=== PATIENT | female | born 1990 | race Asian ===

== ENCOUNTER 2019-01-14 11:15 | Inpatient (IN) | payer MEDICAID, SELFPAY ==
[2019-01-14 12:04] VITALS: BMI 35.9
[2019-01-14] MEDS: Lactated Ringers 1,000 ML 50 ML IV ×3 (13:25→21:11)
--- NOTE | 2019-01-14 13:36 | PCM.HP.OB ---
- Problem List (1) Premature rupture of membranes Status: Acute (2) Anemia affecting Status: Acute History Date of Admission: 01/14/19 Final MARLEN: 01/21/19 Final MARLEN Source: US <20 weeks Gestational age: 39 Weeks and 0 Days History of this : This is a 28 year-old, G [1], P [0], at 39 weeks gestational age. Presented to labor and delivery with PROM. Not feeling any contractions. Allergies No Known Allergies Allergy (Verified 01/14/19 11:58) Home Medications: Home Medications Iron 65 mg PO DAILY 01/14/19 Vitamin Tablet 1 PO DAILY 01/14/19 Smoking Status: Never smoker Alcohol: None Substance Use Type: Marijuana Number of Fetus(es): 1 Heart Tracin, moderate variability, accels, no decels, Category 1 TOCO Analysis: Irregular uterine contractions, mild, patient not feeling them. History Past Pregnancies: Past Pregnancies Delivery Date Name GA/Weeks Outcome Route Weight Gender Labor Length Anesthesia Delivery Location Provider FOB Labs: GBS negative RPR negative Rubella immune HBsAG HIV B positive, antibody screen negative GC/CT negative Expected Delivery Method: Spontaneous Vaginal Review of Systems Constitutional: Denies: Chills, Fever, Weight Change HEENT: Denies: Head Aches, Sinus Congestion, Sinus Drainage Respiratory: Denies: Cough, Shortness of breath at rest, Sputum production Gastrointestinal: Denies: Abdominal Pain, Nausea, Vomiting Genitourinary: Denies: Dysuria Musculoskeletal: Denies: Joint Pain, Joint Tenderness Skin: Denies: Rash, Wounds Neurological: Denies: Numbness, Tingling, Focal weakness Psychiatric: Denies: Anxiety, Depression, Homicidal Ideations, Suicidal Ideations Hematologic/ Lymphatic: Denies: Easy Bruising, Easy Bleeding Physical Exam General: Alert, Oriented x3, No apparent distress HEENT: Atraumatic, Normocephalic. Negative for: Thyromegaly, Lymphadenopathy Cardiovascular: Regular rate, Regular Rhythm, No murmurs Lungs: Clear to auscultation, Normal air movement, No rhonchi, No wheeze Abdomen: Bowel Sounds Present, Soft, Non Tender, Gravid Neurological: Deep Tendon Reflexes 2+/4 and Symmetrical EMERGENCY SPECIALIST: Normal external genitalia Estimated gestational size: Appropriate for gestational size Presentation: Cephalic Cervix Dilation (cm): 3 - Per in office prior to admission. Station: 0 Effacement (%): 75 Assessment/Plan All Active Problems Premature rupture of membranes (Acute) Anemia affecting (Acute) This is a 28 year-old, G [1], P [0], at 39 weeks gestational age. A: Premature Rupture of Membranes Category 1 FHT P: 1) Admit to L&D 2) Pitocin augmentation. Reviewed risks, benefits, and alternatives. Patient agrees to plan. 3) Routine labs 4) Continuous monitoring 5) Epidural for pain management. 6) for collaborative physician.
[2019-01-14 13:41] LABS: Hematocrit 35.9 % (37-47); Hemoglobin 11.7 g/dl (12.0-15.0); Mean Corp Hgb Conc 32.6 g/gl (32-36); Mean Corpuscular Hgb 26.6 pg (27.0-32.0); Mean Corpuscular Volume 81.6 fL (81-99); Mean Platelet Vol. 9.4 fl (6.2-12.0); Platelet Count 217 K/mm3 (150-450); RBC Distribution Width SD 41.4 fl (35.1-43.9); White Blood Count 9.5 K/mm3 (4.4-11.0)
[2019-01-14 13:42] LABS: Scan Indicated on CBC? Y/N NO
[2019-01-14] MEDS: Oxytocin 30 units/NS 500 ml 30 UNITS/500 ML IV.SOLN IV (18:53)
[2019-01-14] MEDS: fentaNYL-bupivacaine (epidural) 100 ML BAG EPIDURAL (20:30)
[2019-01-15] MEDS: Lactated Ringers 1,000 ML 50 ML IV (00:27)
[2019-01-15] MEDS: fentaNYL-bupivacaine (epidural) 100 ML BAG EPIDURAL (01:02)
[2019-01-15] MEDS: Acetaminophen 325 MG Tablet PO (06:15)
--- NOTE | 2019-01-15 07:07 | PLAC_PTH ---
PATIENT: ONUR DANG LOC: [facility] U#:[id number] AGE/SX: 28/F ROOM: WP004 RE01/14/[address]: Dr. Lg Lawson MD : [id number] BED: 1 DIS: 01/17/2019 SPEC #: [id number] RECD: 01/15/19 15:33 STATUS: FER NOHEMY #: [id number] MARÍA ELENA: 01/15/19 07:[address]: Lg Lawson DEPT: SURGICAL PATHOLOGY RECD BY: Dominick Peace ENTERED: 01/17/19 14:39 SP TYPE: PLACENTA OTHR DR: No Primary Care Phys Tissues: Placenta, NOS Procedures: Surgery Specimen Level V HEADER OPERATION: Vaginal delivery PRE-OP DIAGNOSIS: Maternal fever, rupture of membranes TISSUE SUBMITTED: Placenta MICROSCOPIC DIAGNOSIS Placenta: Placental disc - third trimester placenta (394 gm). - Focal mild acute vasculitis of subamniotic blood vessels. - Focal area of intraparenchymal hemorrhage (1 cm in greatest dimension). - Subamniotic simple cyst. Membranes - acute chorioamnionitis. Umbilical cord - three blood vessels and focal mild acute funisitis. SJ:blake 01/18/19 MICROSCOPIC DESCRIPTION Slides are reviewed. GROSS DESCRIPTION SPECIMEN: PLACENTA / CLINICAL INFORMATION: A. Weight: 2.833 kg B. Gestational Age: 39 weeks C. Sex: Female PLACENTAL WEIGHT (POST FIXATION): 394 gm PLACENTAL DIMENSIONS: 15 x 15 x 3 cm PLACENTAL SHAPE: Usual ovoid PLACENTAL WEIGHT FOR GESTATIONAL AGE: Within 10-99th percentile MEMBRANES - Present A. Insertion: Marginal B. Site of rupture from edge: 5.5 cm from edge of placental disc C. Color of membrane: Smith-schwartz D. Abnormalities: None UMBILICAL CORD - Present A. Color: Smith-schwartz B. Insertion: Paracentral C. Length: 26 cm D. Diameter: 1-1.5 cm E. Number of vessels: Three F. Abnormalities: None PLACENTAL DISC - Present A. Color of surface: Smith-schwartz B. surface abnormalities: surface shows a cyst filled with mucoid material measuring 3 cm in greatest dimension. C. Maternal cotyledons: Intact with minimal tears D. Attached retro placental clot: No clot E. Cut surface: Dark red and spongy F. Lesions: Sections reveal a hemorrhagic area measuring 1 cm in greatest dimension. G. Separate clot: Absent SECTIONS SUBMITTED: 1. Membrane roll 2. Cord, maternal end, surface cyst 3. Cord, end, surface cyst 4. Placental disc, and maternal surfaces 5. Placental disc, and maternal surfaces, hemorrhagic lesion 6. Placental disc, and maternal surfaces DAVID:blake 01/17/19 TC:2 CPT: 52065
[2019-01-15] MEDS: Oxytocin 30 units/NS 500 ml 30 UNITS/500 ML IV.SOLN 334 UNITS IV (07:10)
[2019-01-15] MEDS: Oxytocin 30 units/NS 500 ml 30 UNITS/500 ML IV.SOLN 167 UNITS IV (07:40)
--- NOTE | 2019-01-15 08:25 | OP.PCM_ITS ---
Addendum entered and electronically signed by Ashley Rodriguez CNM 01/15/19 08:57: Code Visit cord clamped and cut by FOB after pulsations ceased. Original Note: - Problem List (1) Premature rupture of membranes Status: Acute (2) Anemia affecting Status: Acute (3) (normal spontaneous vaginal delivery) Status: Acute (4) Second degree perineal laceration during delivery Status: Acute Vaginal Delivery Maternal Presentation: Active Labor Method of Induction: Pitocin Amniotic Membrane Rupture Type: Spontaneous at home Amniotic Fluid Description: Clear Final MARLEN Source: US <20 weeks Date of Procedure: 01/15/19 Pre-Operative Diagnosis: Premature Rupture of Membranes Post-Operative Diagnosis: Surgery/ Procedure Performed: Spontaneous Vaginal Delivery Type of Anesthesia: Epidural, Local with 1% lidocaine Description of Procedure: Progressed to complete with urge to push. Maternal temperature elevated to 101.7 and tachycardia, suspected Triple I. During pushing heart rate 165- 170, moderate variability, late decelerations. notified of heart tracing and near delivery. Patient pushing efforts with progress. [employer] Developer called to delivery due to tachycardia and late decelerations. of viable female infant over 2nd degree perineal laceration. APGARS 9,9 with weight pending. Strong cry with delivery, stimulation and mouth and nares suctioned for secretions, terminal meconium. Infant placed on maternal abdomen and skin to skin. Pitocin started for active 3rd stage management. Placenta delivered with maternal effort, intact, 3 vessel cord. Placenta given to nursing for cultures. Perineum inspected and revealed 2nd degree perineal laceration. Repaired with 3.0 vicryl with epidural and 1% lidocaine. Fundus firm, hemostasis achieved, EBL 150ml. Baby to breast and mom planning on . Mom and baby stable. Family bonding well. notified of delivery. Presentation: Vertex Placental Delivery Description: Spontaneous Placenta Disposition: [facility] Cord Vessel Description: 3 Vessels Cord Entanglement: None Estimated Blood Loss: 150ml Infant A gender: Female (1 minute): 9 (5 minute): 9 Episiotomy Description: Perineal Extension/lac Laceration: Perineal Extension/lac, 2nd degree Medications given after delivery: IV Pitocin
[2019-01-15] MEDS: Ibuprofen 600 MG Tablet PO (09:30)
--- NOTE | 2019-01-15 10:20 | ED.RN ---
epidural catheter removed. blue tip intact. pt tolerated well
[2019-01-15 11:05] VITALS: BP 134/72; PULSE 116; RESP 18; TEMP 37.4; O2SAT 97
--- NOTE | 2019-01-15 12:10 | NURSING ---
tucks pads and ice pack applied for perineal comfort
[2019-01-15] MEDS: Ferrous Sulfate 325 MG Tablet PO (12:58)
[2019-01-15 15:38] VITALS: BP 124/68; PULSE 96; RESP 18; TEMP 36.4; O2SAT 98
[2019-01-15 16:22] LABS: Amphetamine Urine VISTA NEGATIVE (<1000 ng/mL); Barbiturate Urine VISTA NEGATIVE (< 200 ng/mL); Benzodiazepine Urine VISTA NEGATIVE (< 200 ng/mL); Cocaine Urine VISTA NEGATIVE (< 300 ng/mL); Ecstacy Urine VISTA NEGATIVE (< 500 ng/mL); Methadone Urine VISTA NEGATIVE (< 300 ng/mL); PCP Urine VISTA NEGATIVE (< 25 ng/mL); THC Urine VISTA NEGATIVE (< 50 ng/mL); Vista UDS pH Range 6
[2019-01-15 20:00] VITALS: BP 125/83; PULSE 108; RESP 16; TEMP 36.2
[2019-01-16] VITALS: BP 132/89; PULSE 102; RESP 18; TEMP 36.9
[2019-01-16] MEDS: Ibuprofen 600 MG Tablet PO ×3 (00:21→16:02)
[2019-01-16 04:15] VITALS: BP 118/65; PULSE 85; RESP 16; TEMP 36.2
[2019-01-16 09:14] VITALS: BP 125/72; PULSE 89; RESP 16; TEMP 36.4; O2SAT 98
--- NOTE | 2019-01-16 10:52 | PCM.PN.OB ---
Patient Problems: Active and Suspected Problems Premature rupture of membranes (Acute) Anemia affecting (Acute) (normal spontaneous vaginal delivery) (Acute) Second degree perineal laceration during delivery (Acute) Subjective: Doing well per patient and nursing staff. Ambulating and taking PO without difficulty. Voiding and passing flatus. Denies headache, visual changes, chest pain, shortness of breath, leg pain, increased vaginal bleeding or clots. Bottle feeding. Planning D/C home tomorrow. - Physical Exam General: Alert, Oriented x3, Cooperative HEENT: Atraumatic, Normocephalic Neck: Supple, Trachea Midline Lungs: Clear to auscultation, No rhonchi, No wheeze Cardiovascular: Regular rate, Regular Rhythm, No murmurs Abdomen: Bowel Sounds Present, Soft, Non Tender, Gravid, - - Fundus firm 3 below U Extremities: - - +1 BLE pitting edema Neurological: Cranial nerves II-XII grossly intact Psych/Mental Status: Normal Affect, Appropriate Vital Signs Temp Pulse Resp BP Pulse Ox 97.6 F L 89 16 125/72 H 98 01/16/19 09:14 01/16/19 09:14 01/16/19 09:14 01/16/19 09:14 01/16/19 09:14 Oxygen Delivery Method Room Air Weight: 189 lb 12.8 oz Body Mass Index (BMI) 35.9 Intake and Output for Last 24 Hours 01/14/19 01/15/19 01/16/19 23:59 23:59 23:59 Intake Total 3856 / 3856 Output Total 350 / 350 2500 / 2500 Balance -350 / -350 1356 / 1356 Laboratory Tests Past 24 Hrs 01/15/19 15:50 Urine Opiates Screen NEGATIVE Urine Methadone Screen NEGATIVE Ur Barbiturates Screen NEGATIVE Ur Phencyclidine Scrn NEGATIVE Ur Amphetamines Screen NEGATIVE U Methamphetamin-MDMA NEGATIVE U Benzodiazepines Scrn NEGATIVE Urine Cocaine Screen NEGATIVE U Cannabinoids Screen NEGATIVE Ur Drug Screen Comment Medical Necessity - Tobacco Use Smoking Status: Never smoker Assessment/Plan All Active Problems Premature rupture of membranes (Acute) Anemia affecting (Acute) (normal spontaneous vaginal delivery) (Acute) Second degree perineal laceration during delivery (Acute) A: PPD #1 P: 1) Routine care 2) Planning D/C home tomorrow 3) Pain management, controlled at this time.
--- NOTE | 2019-01-16 11:26 | DCINST_ITS ---
Discharge Diet: No Restrictions Discharge Activity: May Drive, May Shower, May Take a Tub Bath May resume sexual activity in: 4-6 weeks Weight Bearing Status: Full weight bearing Call your doctor if your incision/area has: Continuous Slow Oozing, Sudden Increased Bleeding, Increased Pain/ Swelling, Increased Redness, Foul Smelling Discharge Call your doctor if you observe: Fever of 101 or Higher, Inability to urinate, Inability to have a bowel movement, Using more than one pad per hour, Shortness of breath, Chest pain, Increased palpitations (irregular heartbeat), Calf discomfort, Uncontrolled pain Additional Instructions: If you experience any of the following, contact your healthcare provider. * Bleeding that soaks a pad every hour for 2 hours * Fever 100.4 or higher * Unrelieved incision or abdominal pain * Swelling, redness, discharge or bleeding from your incision or episiotomy site * Your incision begins to separate * Problems urinating (including inability to urinate or burning while urinating). * Visual changes * Severe headache * Flu-like symptoms * Pain or redness in one of both of your breasts * Pain, warmth, tenderness or swelling in your legs, especially the calf area * Frequent nausea and vomiting * Symptoms of depression or anxiety If you experience any of the following, call 911 or go to the nearest Emergency Room. * Chest pain * Problems breathing * Seizure activity * Partial or complete paralysis of a body part, slurred speech, weakness or drooping of the face, or a sudden inability to walk or hold your balance Allergies/Adverse Reactions: Allergies No Known Allergies Allergy (Verified 01/14/19 11:58) Medications to take at Discharge Iron 65 mg PO DAILY 01/14/19 Vitamin Tablet 1 PO DAILY 01/14/19 Ibuprofen [Motrin] 600 mg PO Q6H PRN PRN 30 Days #30 tablet 01/16/19 The following prescriptions were given: Ibuprofen [Motrin] 600 mg PO Q6H PRN PRN 30 Days #30 tablet PRN Reason: Mild Pain (-01/30) Please Follow Up With: Ashley Rodriguez CNM When: Call to make an appointment with your doctor in 2 weeks and 6 weeks. Primary Care Physician: Care Physician,No Primary [Primary Care Provider] - Test Results: Test results from this visit will be discussed in further detail at your follow- up appointment, if applicable.
[2019-01-16] MEDS: Ferrous Sulfate 325 MG Tablet PO (12:58)
[2019-01-16 14:40] VITALS: BP 118/78; PULSE 91; RESP 16; TEMP 36.5; O2SAT 97
[2019-01-16 20:00] VITALS: BP 108/68; PULSE 88; RESP 18; TEMP 36.3
[2019-01-17 01:00] VITALS: BP 118/83; PULSE 90; RESP 16; TEMP 36.8
[2019-01-17] MEDS: Ibuprofen 600 MG Tablet PO ×2 (01:09→06:52)
[2019-01-17] MEDS: Acetaminophen 500 MG Tablet 1000 MG PO (02:50)
[2019-01-17] MEDS: Ferrous Sulfate 325 MG Tablet PO (07:56)
[2019-01-17 08:15] VITALS: BP 131/80; PULSE 92; RESP 18; TEMP 36.2; O2SAT 95
--- NOTE | 2019-01-17 08:20 | PCM.PN.OB ---
Patient Problems: Active and Suspected Problems Premature rupture of membranes (Acute) Anemia affecting (Acute) (normal spontaneous vaginal delivery) (Acute) Second degree perineal laceration during delivery (Acute) Subjective: pt seen at bedside, doing well. pt reports good pain control. lochia mild. Bottle feeding. - Physical Exam General: Alert, Oriented x3 Abdomen: Soft - fundus firm Vital Signs Temp Pulse Resp BP Pulse Ox 98.3 F 90 16 118/83 H 97 01/17/19 01:00 01/17/19 01:00 01/17/19 01:00 01/17/19 01:00 01/16/19 14:40 Oxygen Delivery Method Room Air Weight: 86.092 kg Body Mass Index (BMI) 35.9 Intake and Output for Last 24 Hours 01/15/19 01/16/19 01/17/19 23:59 23:59 23:59 Intake Total 3856 / 3856 Output Total 2500 / 2500 Balance 1356 / 1356 Medical Necessity - Tobacco Use Smoking Status: Never smoker Assessment/Plan All Active Problems Premature rupture of membranes (Acute) Anemia affecting (Acute) (normal spontaneous vaginal delivery) (Acute) Second degree perineal laceration during delivery (Acute) PPD#2, doing well routine care pain mgmt dc home
[2019-01-18 15:43] LABS: Pathology Specimen OB SEE PATHOLOGY REPORT
== END 2019-01-17 10:45 | disposition home or self-care (01) | DRG 560 ==
PROVIDERS: Advanced Practice Midwife; Obstetrics & Gynecology; Admitting Provider Obstetrics & Gynecology; Referring Provider Obstetrics & Gynecology; Visit Provider Obstetrics & Gynecology
DX: O42.92 Full-term premature rupture of membranes, unspecified as to length of time between rupture and onset of labor (principal); O99.02 Anemia complicating childbirth; D64.9 Anemia, unspecified; O70.1 Second degree perineal laceration during delivery; O75.2 Pyrexia during labor, not elsewhere classified; O76 Abnormality in fetal heart rate and rhythm complicating labor and delivery; O77.0 Labor and delivery complicated by meconium in amniotic fluid; Z3A.39 39 weeks gestation of pregnancy; Z37.0 Single live birth
CPT/HCPCS: 59025; 59050; 80307; 85027; 86850; 86900; 88307; 99218; J7120; G0378

== ENCOUNTER 2021-07-03 15:15 | Inpatient (IN) | payer MEDICAID, SELFPAY ==
[2021-07-03] VITALS (86 sets, daily range): BP systolic 111–174; BP diastolic 63–107; PULSE 78–107; RESP 16–18; TEMP 36.1–36.7; O2SAT 82–99; BMI 37.9
[2021-07-03] MEDS: 0.9% Saline Lock 10 ML Syringe IV ×2 (13:08→15:45)
[2021-07-03 13:34] LABS: Hematocrit 34.9 % (37-47); Hemoglobin 11.1 g/dL (12.0-15.0); Mean Corp Hgb Conc 31.8 g/dL (32-36); Mean Corpuscular Hgb 25.9 pg (27.0-32.0); Mean Corpuscular Volume 81.4 fL (81-99); Mean Platelet Vol. 10.4 fl (6.2-12.0); Platelet Count 222 K/mm3 (150-450); RBC Distribution Width SD 40.2 fl (35.1-43.9); Red Blood Count 4.29 M/mm3 (4.2-5.4); White Blood Count 8.5 K/mm3 (4.4-11.0)
[2021-07-03 13:56] LABS: Protein:Creat Ratio 230 mg/g CRE (0-200)
[2021-07-03 14:15] LABS: AST(SGOT) 13 U/L (15-37); Alanine Aminotransfer ALT/SGPT 14 U/L (13-56); Creatinine, Serum 0.54 mg/dL (0.55-1.02); EST Glomerular Filtration Rate 141 mL/min (>60); Est Glom Filt Rate - Afr Amer 171 mL/min (>60); LDH 257 U/L (84-246); Uric Acid 6.2 mg/dL (2.6-6.0)
[2021-07-03] MEDS: Lactated Ringers 1,000 ML 50 ML IV (15:45)
[2021-07-03] MEDS: miSOPROStol 25 MCG TABLET PO ×2 (16:16→20:53)
[2021-07-03] MEDS: Labetalol (Prefilled) 20 MG/4 ML IV (16:56)
[2021-07-03] MEDS: Magnesium Sulfate 4gm/100mL 4 GM/100 ML IV.SOLN. IV (16:59)
[2021-07-03] MEDS: Magnesium Sulfate 4gm/100mL 2 GM/50 ML IV.SOLN. IV (17:18)
--- NOTE | 2021-07-03 17:22 | NURSING ---
Second bag for bolus hung
[2021-07-03] MEDS: Magnesium Sulfate 20 GM/500 ML BAG IV (17:30)
[2021-07-03] MEDS: Labetalol 100 MG Tablet PO ×2 (17:51→22:00)
[2021-07-03] MEDS: 0.9% Normal Saline Single 100 ML IV.SOLN. INTRA-UTER (20:05)
--- NOTE | 2021-07-03 20:12 | PCM.HP.OB ---
HPI - General General Date of Admission: 07/03/21 HPI Narrative ONUR DANG, is a 31 F who presents at 37w5d. Presented to the office today for routine visit and found to have elevated blood pressure. Sent to labor and delivery for serial blood pressure and labs and blood pressure continued to increase. Decision for induction of labor due to gestational hypertension with severe range blood pressure. Asymptomatic with no headaches, visual changes, right upper quadrant pain. complicated by obesity, prior marijuana use that stopped with . Maternal Data Information MARLEN Calculator Estimated Delivery Date Method Current WG Current Estimate 07/19/21 Manual 37w 5d PFSH [facility] Medical History (Updated 07/03/21 @ 20:19 by Ashley Rodriguez CNM) Family history of hearing loss at age younger than 7 years Gestational HTN Home Medications Iron 65 mg PO DAILY 01/14/19 [History Last Taken 07/01/21 09:00 65 mg] PNV no.[id number] [ Gummies] 4 tab PO DAILY 07/03/21 [History Last Taken 07/02/21 09:00 4 tab] Allergy/AdvReac Type Severity Reaction Status Date / Time No Known Allergies Allergy Verified 07/03/21 12:48 Social History Smoking Status: Former smoker History Elective abortions Hx Para 1 Spontaneous abortions Hx # Term Pregnancies Ectopic pregnancies Hx # Pregnancies Multiple births # of living children NST FHR Rate Baby A Baseline: 125 Variability:: Moderate Accelerations:: 15 x 15 Decelerations:: None FHR Category:: Category I Uterine Activity:: None ROS Constitutional Constitutional: Reports systems reviewed and no addt'l complaints, except as documented; Denies headache(s) Eyes Eyes: Denies acute decrease in peripheral vision, blurry vision or change in vision ENT HEENT: Reports systems reviewed and no addt'l complaints, except as documented Cardiovascular Cardiovascular: Denies chest pain or dizziness Respiratory/Chest Respiratory/Chest: Denies cough, dyspnea, dyspnea on exertion, shortness of breath at rest or shortness of breath with exertion Gastrointestinal Gastrointestinal: Denies abdominal pain, diarrhea, nausea or vomiting Genitourinary Genitourinary: Denies abdominal discomfort or movement Musculoskeletal Musculoskeletal: Denies limited range of motion Integumentary Integumentary: Reports systems reviewed and no addt'l complaints, except as documented Neurologic Neurologic: Reports systems reviewed and no addt'l complaints, except as documented Psychiatric Psychiatric: Reports systems reviewed and no addt'l complaints, except as documented Endocrine Endocrinology: Reports systems reviewed and no addt'l complaints, except as documented Hematologic/Lymphatic Hematologic/Lymphatic: Reports systems reviewed and no addt'l complaints, except as documented Allergic/Immunologic Allergic/Immunologic: Reports systems reviewed and no addt'l complaints, except as documented Vital Signs Vital Signs Vital Signs: 07/03/21 12:43 07/03/21 13:02 07/03/21 13:14 Temperature 97.3 F L Temperature Source Temporal Pulse Rate 81 83 84 Respiratory Rate Respiratory Effort Respiratory Depth Respiratory Pattern Blood Pressure 142/99 H 166/101 H 155/104 H Blood Pressure Mean BP Systolic 142 166 155 BP Diastolic 99 101 104 Blood Pressure Source Blood Pressure Position Blood Pressure Location Pulse Ox Oxygen Delivery Method 07/03/21 13:29 07/03/21 13:44 07/03/21 13:59 Temperature Temperature Source Pulse Rate 83 85 88 Respiratory Rate Respiratory Effort Respiratory Depth Respiratory Pattern Blood Pressure 152/96 H 153/99 H 141/99 H Blood Pressure Mean BP Systolic 152 153 141 BP Diastolic 96 99 99 Blood Pressure Source Blood Pressure Position Blood Pressure Location Pulse Ox Oxygen Delivery Method 07/03/21 14:14 07/03/21 14:29 07/03/21 14:44 Temperature Temperature Source Pulse Rate 89 78 80 Respiratory Rate Respiratory Effort Respiratory Depth Respiratory Pattern Blood Pressure 142/98 H 145/95 H 157/95 H Blood Pressure Mean BP Systolic 142 145 157 BP Diastolic 98 95 95 Blood Pressure Source Blood Pressure Position Blood Pressure Location Pulse Ox Oxygen Delivery Method 07/03/21 15:00 07/03/21 15:57 07/03/21 16:14 Temperature 98.1 F Temperature Source Temporal Pulse Rate 87 88 83 Respiratory Rate Respiratory Effort Respiratory Depth Respiratory Pattern Blood Pressure 142/98 H 165/107 H 174/96 H Blood Pressure Mean BP Systolic 142 165 174 BP Diastolic 98 107 96 Blood Pressure Source Blood Pressure Position Blood Pressure Location Pulse Ox Oxygen Delivery Method 07/03/21 16:15 07/03/21 16:34 07/03/21 16:47 Temperature Temperature Source Pulse Rate 88 88 86 Respiratory Rate Respiratory Effort Respiratory Depth Respiratory Pattern Blood Pressure 154/98 H 160/98 H 161/103 H Blood Pressure Mean BP Systolic 154 160 161 BP Diastolic 98 98 103 Blood Pressure Source Blood Pressure Position Blood Pressure Location Pulse Ox Oxygen Delivery Method 07/03/21 16:59 07/03/21 17:02 07/03/21 17:05 Temperature 98.1 F Temperature Source Temporal Pulse Rate 93 93 96 Respiratory Rate 16 18 Respiratory Effort Normal Respiratory Depth Normal Respiratory Pattern Normal Blood Pressure Blood Pressure Mean BP Systolic BP Diastolic Blood Pressure Source Blood Pressure Position Blood Pressure Location Pulse Ox 97 97 96 Oxygen Delivery Method Room Air Room Air 07/03/21 17:07 07/03/21 17:09 07/03/21 17:12 Temperature Temperature Source Pulse Rate 101 H 100 99 Respiratory Rate Respiratory Effort Respiratory Depth Respiratory Pattern Blood Pressure 136/81 H Blood Pressure Mean BP Systolic 136 BP Diastolic 81 Blood Pressure Source Blood Pressure Position Blood Pressure Location Pulse Ox 97 97 Oxygen Delivery Method 07/03/21 17:17 07/03/21 17:19 07/03/21 17:20 Temperature Temperature Source Pulse Rate 91 88 95 Respiratory Rate 16 Respiratory Effort Respiratory Depth Respiratory Pattern Blood Pressure 133/81 H 133/81 H Blood Pressure Mean 98 BP Systolic 133 BP Diastolic 81 Blood Pressure Source Monitor Blood Pressure Position Semi-Fowlers Blood Pressure Location Left Arm Pulse Ox 95 96 Oxygen Delivery Method Room Air 07/03/21 17:22 07/03/21 17:27 07/03/21 17:30 Temperature Temperature Source Pulse Rate 101 H 90 100 Respiratory Rate Respiratory Effort Respiratory Depth Respiratory Pattern Blood Pressure 135/83 H Blood Pressure Mean BP Systolic 135 BP Diastolic 83 Blood Pressure Source Blood Pressure Position Blood Pressure Location Pulse Ox 97 95 Oxygen Delivery Method 07/03/21 17:32 07/03/21 17:36 07/03/21 17:37 Temperature Temperature Source Pulse Rate 107 H 98 96 Respiratory Rate 16 Respiratory Effort Respiratory Depth Respiratory Pattern Blood Pressure 135/83 H Blood Pressure Mean 100 BP Systolic BP Diastolic Blood Pressure Source Monitor Blood Pressure Position Semi-Fowlers Blood Pressure Location Left Arm Pulse Ox 96 96 95 Oxygen Delivery Method Room Air 07/03/21 17:40 07/03/21 17:42 07/03/21 17:47 Temperature Temperature Source Pulse Rate 93 88 91 Respiratory Rate Respiratory Effort Respiratory Depth Respiratory Pattern Blood Pressure 129/74 H Blood Pressure Mean BP Systolic 129 BP Diastolic 74 Blood Pressure Source Blood Pressure Position Blood Pressure Location Pulse Ox 96 98 Oxygen Delivery Method 07/03/21 17:49 07/03/21 17:50 07/03/21 17:51 Temperature Temperature Source Pulse Rate 92 91 95 Respiratory Rate 16 Respiratory Effort Normal Non-Labored Respiratory Depth Normal Respiratory Pattern Normal Blood Pressure 128/74 H 128/74 H Blood Pressure Mean 92 BP Systolic 128 BP Diastolic 74 Blood Pressure Source Monitor Blood Pressure Position Semi-Fowlers Blood Pressure Location Left Arm Pulse Ox 97 94 Oxygen Delivery Method Room Air 07/03/21 17:52 07/03/21 17:58 07/03/21 17:59 Temperature Temperature Source Pulse Rate 91 88 Respiratory Rate Respiratory Effort Respiratory Depth Respiratory Pattern Blood Pressure Blood Pressure Mean BP Systolic BP Diastolic Blood Pressure Source Blood Pressure Position Blood Pressure Location Pulse Ox 97 82 98 Oxygen Delivery Method 07/03/21 18:01 07/03/21 18:04 07/03/21 18:09 Temperature Temperature Source Pulse Rate 94 103 H 94 Respiratory Rate Respiratory Effort Respiratory Depth Respiratory Pattern Blood Pressure 128/81 H Blood Pressure Mean BP Systolic 128 BP Diastolic 81 Blood Pressure Source Blood Pressure Position Blood Pressure Location Pulse Ox 97 97 Oxygen Delivery Method 07/03/21 18:14 07/03/21 18:18 07/03/21 18:19 Temperature Temperature Source Pulse Rate 91 89 94 Respiratory Rate Respiratory Effort Respiratory Depth Respiratory Pattern Blood Pressure 126/82 H Blood Pressure Mean BP Systolic 126 BP Diastolic 82 Blood Pressure Source Blood Pressure Position Blood Pressure Location Pulse Ox 99 99 Oxygen Delivery Method 07/03/21 18:20 07/03/21 18:24 07/03/21 18:29 Temperature Temperature Source Pulse Rate 89 100 95 Respiratory Rate 16 Respiratory Effort Respiratory Depth Respiratory Pattern Blood Pressure 126/82 H Blood Pressure Mean 96 BP Systolic BP Diastolic Blood Pressure Source Monitor Blood Pressure Position Semi-Fowlers Blood Pressure Location Left Arm Pulse Ox 98 98 97 Oxygen Delivery Method Room Air 07/03/21 18:31 07/03/21 18:34 07/03/21 18:39 Temperature Temperature Source Pulse Rate 90 91 94 Respiratory Rate Respiratory Effort Respiratory Depth Respiratory Pattern Blood Pressure 128/80 H Blood Pressure Mean BP Systolic 128 BP Diastolic 80 Blood Pressure Source Blood Pressure Position Blood Pressure Location Pulse Ox 97 98 Oxygen Delivery Method 07/03/21 18:44 07/03/21 18:47 07/03/21 18:49 Temperature Temperature Source Pulse Rate 89 88 88 Respiratory Rate 16 Respiratory Effort Respiratory Depth Respiratory Pattern Blood Pressure 127/78 H 127/78 H Blood Pressure Mean 94 BP Systolic 127 BP Diastolic 78 Blood Pressure Source Monitor Blood Pressure Position Semi-Fowlers Blood Pressure Location Left Arm Pulse Ox 97 97 Oxygen Delivery Method Room Air 07/03/21 18:54 07/03/21 18:59 07/03/21 19:02 Temperature Temperature Source Pulse Rate 97 95 91 Respiratory Rate Respiratory Effort Respiratory Depth Respiratory Pattern Blood Pressure 126/71 H Blood Pressure Mean BP Systolic 126 BP Diastolic 71 Blood Pressure Source Blood Pressure Position Blood Pressure Location Pulse Ox 98 97 Oxygen Delivery Method 07/03/21 19:04 07/03/21 19:09 07/03/21 19:29 Temperature 97.0 F L Temperature Source Temporal Pulse Rate 97 95 93 Respiratory Rate Respiratory Effort Respiratory Depth Respiratory Pattern Blood Pressure 116/79 Blood Pressure Mean BP Systolic 116 BP Diastolic 79 Blood Pressure Source Blood Pressure Position Blood Pressure Location Pulse Ox 97 97 95 Oxygen Delivery Method 07/03/21 20:08 07/03/21 20:09 Temperature Temperature Source Pulse Rate 88 Respiratory Rate Respiratory Effort Respiratory Depth Respiratory Pattern Blood Pressure 117/73 Blood Pressure Mean BP Systolic 117 BP Diastolic 73 Blood Pressure Source Blood Pressure Position Blood Pressure Location Pulse Ox 96 Oxygen Delivery Method Weight Weight: 200 lb 13.458 oz Body Mass Index (BMI) 37.9 Physical Exam Const Constitutional Narrative: 2cm/60%/-2, vertex. Ford catheter inserted transcervically and 30ml NS instilled without difficulty. Patient tolerated well. Labs Labs Labs: Blood Type B POSITIVE Antibody Screen NEGATIVE Hct 34.9 % (37-47) L Hgb 11.1 g/dL (12.0-15.0) L Rhogam given: No GBS negative HIV negative RPR negative HBsAG negative HepC negative 1hr GCT normal Rubella Immune B Positive GC/CT negative Urine tox screen negative Assessment & Plan (1) Gestational HTN: (2) Encounter for induction of labor: (3) Obesity: PLAN: 1) Admit to labor and delivery for induction of labor due to gestational HTN 2) Routine labs, IV 3) Hypertensive protocol due to severe range blood pressure 4) Magnesium sulfate 6gram loading dose and 2 gram maintenance for severe range blood pressure 5) 150ml fluid restriction 6) Ford with PO cytotec 25mcg orally every 4 hrs 7) Pitocin per protocol after ford out 8) Planning epidural for pain management 9) Referral to for management of patient due to severe range blood pressure and updated on patient status.
[2021-07-03] MEDS: Acetaminophen 500 MG Tablet PO (22:22)
[2021-07-03] MEDS: Lactated Ringers 500 ML 999 ML IV (22:23)
[2021-07-04] VITALS (66 sets, daily range): BP systolic 89–142; BP diastolic 44–80; PULSE 80–160; RESP 14–18; TEMP 35.7–37.2; O2SAT 95–100
[2021-07-04] MEDS: Oxytocin 30 units/NS 500 ml 30 UNITS/500 ML IV.SOLN IV (01:19)
[2021-07-04] MEDS: fentaNYL-bupivacaine (epidural) 100 ML BAG EPIDURAL ×3 (01:35→10:45)
[2021-07-04] MEDS: Magnesium Sulfate 20 GM/500 ML BAG IV ×3 (03:09→22:59)
[2021-07-04] MEDS: Ondansetron 4 MG/2 ML Vial IV (08:04)
[2021-07-04] MEDS: Labetalol 100 MG Tablet PO ×2 (10:53→22:00)
[2021-07-04] MEDS: Oxytocin 30 units/NS 500 ml 30 UNITS/500 ML IV.SOLN 334 UNITS IV (12:11)
--- NOTE | 2021-07-04 12:31 | OP.PCM_ITS ---
Assessment & Plan (1) Vaginal delivery: Maternal Data Information MARLEN Calculator Estimated Delivery Date Method Current WG Current Estimate 07/19/21 Manual 37w 6d Gestational age: 37.6 Vaginal Delivery Maternal Presentation Maternal Presentation: Medically Indicated Induction Type of Induction: Pitocin, Gaspar Bulb and Cytotec Operative Information Date of Procedure: 07/04/21 Pre-Operative Diagnosis: gestational HTN, early term gestation Post-Operative Diagnosis: same, live female infant Surgery / Procedure Performed: Spontaneous Vaginal Delivery Type of Anesthesia: Epidural Special Medications: none Drain: Gaspar to straight drain Estimated Blood Loss: 100 Time of Delivery: 12:08 Findings Description of Procedure: I was called stat from the OR for patient delivery. When I entered the room the head was Dr. Acuna from [facility] Was initially in the room I at this time gowned and gloved and took over. At this time with 1 push 's head was delivered without complication fo llowed by the rest 's body. At this time the infant was placed on the maternal chest for immediate skin to skin the infant was vigorous at time of delivery. Delayed cord clamping was performed. At this time the placenta was then delivered spontaneously without complication. Vagina was inspected and noted to be intact. Presentation: Vertex Amniotic Membrane Rupture Type: Spontaneous Amniotic Fluid Description: Clear Placental Delivery Description: Spontaneous Placenta Disposition: [facility] Specimen(s) Removed: placenta Cord Vessel Description: 3 Vessels Cord Entanglement: None A Gender: Female (1 minute): 8 (5 minute): 9 Delayed Cord Clamping: Yes Post Vaginal Delivery Medications Given After Delivery: IV Pitocin Episiotomy Description: None Laceration: None Complication Complications: None Admit VTE Documentation VTE Present on Admission: No VTE Pharm Prophylaxis Ordered: No
--- NOTE | 2021-07-04 19:30 | NURSING ---
report receieved from shayy taylor RN. this rn to assume care of pt at this time.
[2021-07-04] MEDS: Ibuprofen 600 MG Tablet PO (21:59)
[2021-07-05] VITALS (30 sets, daily range): BP systolic 99–137; BP diastolic 50–77; PULSE 80–180; RESP 14–18; TEMP 36.1–36.8; O2SAT 82–100
[2021-07-05] MEDS: oxyCODONE 5 MG Tablet PO ×3 (02:23→13:46)
--- NOTE | 2021-07-05 08:13 | PCM.PN.OB ---
Subjective Subjective Patient currently on magnesium. She feels okay. She denies headache, vision changes, upper abdominal pain. No nausea or vomiting. Denies chest pain, shortness of breath, leg pain. Lochia normal. Has some cramping and vaginal soreness. Objective Data Objective Data Vital Signs: Vital Signs Temp Pulse Resp BP Pulse Ox 97.3 F L 180 H 16 114/69 82 07/05/21 07:28 07/05/21 07:29 07/05/21 07:28 07/05/21 07:28 07/05/21 07:29 Oxygen Delivery Method Room Air Weight: 200 lb 13.458 oz Body Mass Index (BMI) 37.9 Intake & Output: Intake and Output for Last 24 Hours 07/03/21 07/04/21 07/05/21 23:59 23:59 23:59 Intake Total 1539.92 / 1691.42 4475.35 / 4475.35 814.51 / 814.51 Output Total 350 / 350 5875 / 5875 1530 / 1530 Balance 1189.92 / 1341.42 -1399.65 / -1399.65 -715.49 / -715.49 Lab / Micro Data Result Diagrams: 07/03/21 13:08 07/03/21 13:08 Micro: Microbiology 07/03/21 15:40 Mucosa - Nose SARS-CoV-2 Antigen (Rapid) - Final Physical Exam Const alert and no apparent distress General Appearance: comfortable Resp normal respiratory effort GI soft to palpation and non-tender Extremity Extremity Narrative: 1+ pitting edema of LE bilaterally Assessment & Plan (1) Vaginal delivery: PLAN: Cont mag gtt for 24 hrs . BP WNL. No pre e symptoms currently. Will d/c ford once off mag gtt. Ok for regular diet. Discussed with pt will need to monitor BP's for at least 24 hours off mag gtt, and will assess for discharge at that time pending symptoms and BP's. (2) Obesity: (3) Gestational HTN: (4) Preeclampsia:
[2021-07-05] MEDS: Magnesium Sulfate 20 GM/500 ML BAG IV (08:29)
[2021-07-05] MEDS: Labetalol 100 MG Tablet PO ×2 (10:29→22:51)
[2021-07-05] MEDS: Ferrous Sulfate 325 MG Tablet PO (11:29)
[2021-07-05] MEDS: 0.9% Saline Lock 10 ML Syringe IV (12:44)
[2021-07-05] MEDS: Ibuprofen 600 MG Tablet PO (20:45)
[2021-07-06] VITALS (16 sets, daily range): BP systolic 113–137; BP diastolic 57–77; PULSE 74–97; RESP 16–18; TEMP 36.2–37.1; O2SAT 97–99
[2021-07-06] MEDS: Ibuprofen 600 MG Tablet PO ×2 (07:57→20:28)
--- NOTE | 2021-07-06 08:52 | PCM.PN.OB ---
Subjective Subjective Pt doing well. No MORAN, vision changes, upper abd pain. Pain well controlled. Anselmo reg diet without N/V. Ambulating and voiding without difficulty. Lochia normal. Desires discharge today. Objective Data Objective Data Vital Signs: Vital Signs Temp Pulse Resp BP Pulse Ox 97.1 F L 78 16 120/67 97 07/06/21 08:00 07/06/21 08:01 07/06/21 08:00 07/06/21 08:01 07/06/21 08:00 Oxygen Delivery Method Room Air Weight: 200 lb 13.458 oz Body Mass Index (BMI) 37.9 Intake & Output: Intake and Output for Last 24 Hours 07/04/21 07/05/21 07/06/21 23:59 23:59 23:59 Intake Total 4475.35 / 4475.35 1612.76 / 1612.76 Output Total 5875 / 5875 3030 / 3030 Balance -1399.65 / -1399.65 -1417.24 / -1417.24 Lab / Micro Data Result Diagrams: 07/03/21 13:08 07/03/21 13:08 Micro: Microbiology 07/03/21 15:40 Mucosa - Nose SARS-CoV-2 Antigen (Rapid) - Final Physical Exam Const alert and no apparent distress General Appearance: comfortable HEENT normocephalic Resp normal respiratory effort GI soft to palpation, non-tender and non-distended Extremity Extremity Narrative: 1+ edema bilaterally 2+ patellar reflexes Skin no rashes or lesions noted Assessment & Plan (1) Preeclampsia: PLAN: PPD# 2 s/p . S/p mag gtt for 24 hrs . BP's are WNL. No pre e symptoms. Doing well. Patient desires discharge today. Discussed BP's can trend up around 48 hours after delivery. Ok for discharge home if BP's remain WNL for a full 24 hours after mag gtt stopped. Discussed she will then need to oyster picker a BP cuff and check BP twice daily. Instructed her when to call with symptoms and BP's. To message office on Thursday with BP's. To have a visit next week for a BP check in office as well. (2) Vaginal delivery: (3) Obesity: (4) Gestational HTN:
[2021-07-06] MEDS: Senna/Docusate Sodium 1 Tablet PO (10:06)
[2021-07-06] MEDS: Labetalol 100 MG Tablet PO (10:06)
[2021-07-06] MEDS: Ferrous Sulfate 325 MG Tablet PO (11:58)
[2021-07-06] MEDS: 0.9% Saline Lock 10 ML Syringe IV (16:07)
[2021-07-06] MEDS: Hydrocortisone 2.5% Crm 1 APPLIC TOPICAL (16:17)
[2021-07-06] MEDS: Labetalol 200 MG Tablet PO (22:02)
[2021-07-07] VITALS (15 sets, daily range): BP systolic 127–168; BP diastolic 65–93; PULSE 83–92; RESP 16–18; TEMP 36.2–36.6; O2SAT 96–98
[2021-07-07] MEDS: 0.9% Saline Lock 10 ML Syringe IV (05:14)
[2021-07-07] MEDS: Labetalol 200 MG Tablet PO (08:28)
[2021-07-07] MEDS: Labetalol 100 MG Tablet PO (10:25)
--- NOTE | 2021-07-07 10:26 | PN.OBGYN_ITS ---
Subjective Subjective She is doing well this morning. She has no complaints and desires to go home. Denies headache, vision changes, upper abdominal pain. Ambulating voiding without difficulty. Tolerating regular diet without nausea or vomiting. Lochia normal. No chest pain, shortness of breath, leg pain. Pain is well controlled. Her and her significant other expressed frustration this morning as a state they need to go home today given lack of childcare for daughter at home. She is reasonably frustrated, and wishes to go home as soon as possible. Her and her significant other state that if not discharged today they will sign out AGAINST MEDICAL ADVICE. Objective Data Objective Data Vital Signs: Vital Signs Temp Pulse Resp BP Pulse Ox 97.1 F L 90 16 138/88 H 98 07/07/21 08:20 07/07/21 09:52 07/07/21 08:20 07/07/21 09:52 07/07/21 04:57 Oxygen Delivery Method Room Air Weight: 200 lb 13.458 oz Body Mass Index (BMI) 37.9 Intake & Output: Intake and Output for Last 24 Hours 07/05/21 07/06/21 07/07/21 23:59 23:59 23:59 Intake Total 1612.76 / 1612.76 Output Total 3030 / 3030 Balance -1417.24 / -1417.24 Lab / Micro Data Result Diagrams: 07/03/21 13:08 07/03/21 13:08 Micro: Microbiology 07/03/21 15:40 Mucosa - Nose SARS-CoV-2 Antigen (Rapid) - Final Physical Exam Const no apparent distress General Appearance: comfortable HEENT normocephalic Resp normal respiratory effort GI soft to palpation, non-tender and non-distended Extremity Extremity Narrative: 1+ pitting edema bilaterally Assessment & Plan (1) Preeclampsia: PLAN: Labetalol was increased yesterday to 200 mg BID. Increase again this AM to 300 mg BID. Patient feels well and has no symptoms of pre e. Will check labs this AM given BP's. S/p 24 hrs of mag gtt . Discussed with patient and significant other would like to monitor BP's all day today and reassess in PM. 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 They state they will sign out AMA today if not discharged. Will check BP q 1 hour this AM and reassess for discharge around noon. Discussed with patient she will need to check BP's at home later today if discharged. Reviewed to check BP prior to taking PM labetalol and 2 hours after. Also discussed symptoms of pre e and to check BP if she becomes symptomatic. Instructed her to call with BP of 160/110 or higher. Note sent to office staff to call patient tomorrow to schedule her for follow up in the office for a BP check. (2) Vaginal delivery: (3) Obesity: (4) Second degree perineal laceration during delivery:
[2021-07-07 10:37] LABS: Hematocrit 29.2 % (37-47); Hemoglobin 9.6 g/dL (12.0-15.0); Mean Corp Hgb Conc 32.9 g/dL (32-36); Mean Corpuscular Hgb 27.3 pg (27.0-32.0); Platelet Count 208 K/mm3 (150-450); RBC Distribution Width CV 14.7 % (11.6-14.6); RBC Distribution Width SD 42.9 fl (35.1-43.9); Red Blood Count 3.52 M/mm3 (4.2-5.4); White Blood Count 10.1 K/mm3 (4.4-11.0)
[2021-07-07 10:54] LABS: ALB/GLOB Ratio 0.8 RATIO (0.9-2.4); AST(SGOT) 54 U/L (15-37); Alanine Aminotransfer ALT/SGPT 40 U/L (13-56); Albumin, Serum 2.8 g/dL (3.2-5.0); Alkaline Phosphatase 112 U/L (45-117); Anion Gap 7 (5-15); BUN 9 mg/dL (7-18); BUN/Creat Ratio 16.1 RATIO (10-20); Chloride 107 mmol/L (98-107); Creatinine, Serum 0.56 mg/dL (0.55-1.02); EST Glomerular Filtration Rate 136 mL/min (>60); Est Glom Filt Rate - Afr Amer 165 mL/min (>60); Estimated Creatinine Clearance 111.85 ml/min; Globulin 3.5 g/dL (2.2-4.2); Glucose 99 mg/dL (74-106); Protein, Total 6.3 g/dL (6.4-8.2); Sodium Level 139 mmol/L (136-145)
--- NOTE | 2021-07-07 12:30 | NURSING ---
Patient requesting to leave AMA. Patient was educated that BP's are just under severe range even with BP meds and also she has an elevated liver enzyme. Informed of risks of leaving with risk of possible stroke or seizure. Educated on signs and symptoms to watch for and to bean picker prescription for BP cuff and Labetalol at pharmacy. Patient verbalized understanding and still requests to leave AMA.
== END 2021-07-07 12:40 | disposition home or self-care (01) | DRG 560 ==
LOC: WPOUT 15:19 → WP 15:19
PROVIDERS: Obstetrics & Gynecology; Admitting Provider Advanced Practice Midwife; Referring Provider Advanced Practice Midwife; Visit Provider Obstetrics & Gynecology
DX: O14.94 Unspecified pre-eclampsia, complicating childbirth (principal); O99.214 Obesity complicating childbirth; O70.1 Second degree perineal laceration during delivery; E66.9 Obesity, unspecified; Z37.0 Single live birth; Z3A.37 37 weeks gestation of pregnancy; Z87.891 Personal history of nicotine dependence
CPT/HCPCS: 59025; 59050; 80053; 82565; 82570; 83615; 84156; 84450; 84460; 84550; 85027; 86850; 86900; 86901; 87426; 99218; J7120; A4216; G0378; J2405